=== PATIENT | male | born 1985 | race Caucasian/White ===

== ENCOUNTER 2017-01-11 05:52 | Day surgery (SDC) | payer OTHER ==
[~2017-01-11] VITALS: Ht 177.8 cm; Wt 90.7 kg
--- NOTE | ~2017-01-11 | O ---
[facility] [employer] [place] [address] OPERATIVE REPORT Name: ELTON GREENE Room #: DEP [facility]..#: [id number] Admission: 01/11/17 Attend Phys: Too Solorzano MD Discharge: 01/11/17 Date of : 85 Report #: [id number] THIS REPORT FOR: //name// CC: Too Cevallos DATE OF SERVICE: 01/11/2017 SERVICE: Orthopedics. FACILITY: [place]. PREOPERATIVE DIAGNOSES: 1. Left knee pain. 2. Left knee medial meniscus tear. POSTOPERATIVE DIAGNOSES: 1. Left knee pain. 2. Left knee medial meniscus tear, undersurface partial thickness, 8 mm in length. 3. Left knee medial plica. 4. Left knee medial femoral condyle chondromalacia. PROCEDURE: 1. Left knee arthroscopy with plica resection. 2. Left knee limited chondroplasty of the medial femoral condyle. 3. Left knee medial meniscus trephination. COMPLICATIONS: None. DRAINS: None. SPECIMENS: None. ESTIMATED BLOOD LOSS: Less than 5 mL. TOURNIQUET TIME: 28 minutes. FINDINGS: 1. Intact lateral compartment. 2. Intact ACL and PCL. 3. Normal patellofemoral space. 4. Medial compartment: Chondromalacia of the posterior midline portion of the medial femoral condyle and partial thickness about 30% and partial thickness chondromalacia of the distal lateral portion of the medial femoral condyle adjacent to the plica with wearing of the articular cartilage approximately 50%. [facility] [place] [employer] [place] [address] OPERATIVE REPORT Name: ELTON GREENE Room #: DEP [facility] M.R.#: [id number] Admission: 01/11/17 Attend Phys: Too Solorzano MD Discharge: 01/11/17 Date of : 85 Report #: [id number] No unstable flaps and a limited chondroplasty performed on the rim here. 5. Medial meniscus with an undersurface partial thickness tear that was stable to probing and measured 8 mm in length and it was felt that a debridement would be more detrimental as would. It was stable, so repair was not indicated, trephination was performed to generate optimal opportunity for healing. HISTORY AND INDICATIONS: The patient is a 31-year-old male with an injury to his left knee that resulted in persistent pain and dysfunction secondary to left knee pain. 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 He had to do repetitive turning and pivoting regularly and this was quite painful for him and was leading to episodes of giving way. The risks, benefits, alternatives and indications for surgery were discussed with him in detail, risks include but not limited to pain, bleeding, infection, injury to nerves or blood vessels, persistent pain despite surgical intervention, failure of any repairs or reconstructions, stiffness, need for further surgery including revision as well as complications related to anesthesia such as stroke, heart attack, pulmonary complications, thromboembolic disease and . Despite these risks, he wished to proceed. PROCEDURE IN DETAIL: After left lower extremity was correctly identified in preoperative holding area as the operative extremity, the patient was taken to the operating room and placed supine on operating table and general anesthesia with LMA was induced without complication. He was padded appropriately. Prophylactic antibiotics were administered. Tourniquet was applied to the left thigh, left leg was then prepped and draped in standard sterile fashion. Time-out procedure was performed. Esmarch was used to exsanguinate the leg and tourniquet inflated to 300 mmHg for 28 minutes. Standard anterolateral viewing portal as well as anterior medial working portal was established. Diagnostic arthroscopy revealed intact patellofemoral and lateral compartments with the stable lateral meniscus. ACL and PCL were normal as well. The medial compartment had chondromalacia in 2 areas on the medial femoral condyle, one was posterior and midline towards the PCL, the second area was distal and lateral and was directly adjacent to plica which was present extending from the medial synovium and all the way across to the infrapatellar region and this had to be removed with the meniscal biter because it was so thick. It was not responding to simple shaving and the biter was used to generate a free edge and then a shaver used to resect the rest of this on a dynamic arthroscopic examination prior to removal of the plica it could be seen to rub within the groove in the medial femoral condyle which was about 2 cm in length x 2 cm in width. It could also be seen to stretch across this chondral defect and [facility] [address] [place] [address] OPERATIVE REPORT Name: ELTON GREENE Room #: DEP [facility] MJalyn.#: [id number] Admission: 01/11/17 Attend Phys: Too Solorzano MD Discharge: 01/11/17 Date of : 85 Report #: [id number] fall into the defect as the knee was taken through range of motion, this would seem to give explanation for mechanical symptoms on the medial aspect of the knee with pivoting and flexion. It was therefore removed in total and then dynamic exam indicated that no further capture was occurring and the medial meniscus had a partial thickness undersurface tear on the tibial side that could be seen by probing and it measured about 8 mm in its maximum length and it was in the red-white zone, it was felt that trimming out this portion would cause significant amount of damage unnecessarily, it was not unstable to probing and so a repair was not appropriate. The posterior root was normal. At this point, an 18-gauge needle was introduced and trephination technique was used on the undersurface of the meniscus to generate a vascular ingrowth channel so that it would have optimal chance to heal. Scope was then placed back in the patellofemoral compartment. All debris was lavaged out of the knee. The arthroscopic effusion was drained, 18 gauge needle was placed under direct visualization. The portal sites were closed and then 10 mL of Duramorph were injected into the intraarticular space via that needle, sterile dressing was applied followed by compression stocking. There were no complications and all counts were recorded as correct. <ELECTRONICALLY SIGNED> By: Too Solorzano MD 01/12/17 0722 [id number] Too Solorzano MD /nt
[~2017-01-11 05:52] MED LIST: PAXIL10 MG PO; XANAX 0.25 MG0.25 MG PO
[2017-01-11 09:00] VITALS: BP 122/68
== END 2017-01-11 13:45 | disposition home or self-care (01) ==
LOC: OR 05:52 → TBA 05:52 → OR 10:44
DX: S83.242A Other tear of medial meniscus, current injury, left knee, initial encounter (principal); M67.52 Plica syndrome, left knee; M94.262 Chondromalacia, left knee; F32.89 Other specified depressive episodes; F41.8 Other specified anxiety disorders; Z98.890 Other specified postprocedural states; X58.XXXA Exposure to other specified factors, initial encounter; Y93.89 Activity, other specified; Y92.89 Other specified places as the place of occurrence of the external cause; Y99.8 Other external cause status
CPT/HCPCS: 50010; 50101; 50405; 50612; 51038; 51320; 52001; 52282; 54170; 56527; 62110; 62900; 70005

== ENCOUNTER 2021-01-25 11:16 | Day surgery (SDC) | payer OTHER ==
[~2021-01-25] VITALS: Ht 177.8 cm; Wt 96.6 kg
[~2021-01-25 11:16] MED LIST changes: +ADVIL200 M3 PO; +FLEXERIL PO; +HYDROXYZINE HCL25 M2 PO; +NEURONTIN 300M300 M2 PO; +TRAMADOL 50 MG50 MG PO; +TUMS200 MG PO
[2021-01-25 12:20] VITALS: BP 140/85
[2021-01-25 15:57] VITALS: BP 140/85
--- NOTE | 2021-01-27 06:35 | O ---
[address] [address] OPERATIVE REPORT Name: ELTON GREENE Room #: DEP [facility]..#: [id number] Admission: 01/25/21 Attend Phys: Too Solorzano MD Discharge: 01/25/21 Date of : 85 Report #: [id number] THIS REPORT FOR: cc: Cam Cevallos MD, Travis J. MD McCabe,Too Vela MD ~ DATE OF SERVICE: 01/25/2021 SERVICE: Orthopedics. FACILITY: [place]. SURGEON: Too Solorzano MD WATER POLLUTION CONTROL TECHNICIAN: Ayleen Penny NP INDICATIONS FOR WATER POLLUTION CONTROL TECHNICIAN: Extremity positioning, suture management, arthroscope management, assistance with repair. PREOPERATIVE DIAGNOSES: 1. Right hip pain. 2. Right hip femoral acetabular impingement. 3. Right hip labral tear. POSTOPERATIVE DIAGNOSES: 1. Right hip pain. 2. Right hip femoral acetabular impingement. 3. Right hip labral tear. PROCEDURES PERFORMED: 1. Right hip arthroscopic labral repair. 2. Right hip arthroscopic Cam osteochondroplasty. COMPLICATIONS: None. DRAINS: None. SPECIMENS: None. ANESTHESIA: General with regional. FINDINGS: 1. Intact articular cartilage. 2. Labral tear repair with [place] CinchLock suture anchor x2. 3. Small and medium-sized Cam deformity, maximal alpha angle approximately 56 degrees, treated with Cam osteoplasty. [address] [address] OPERATIVE REPORT Name: ELTON GREENE Room #: DEP [facility]#: [id number] Admission: 01/25/21 Attend Phys: Too Solorzano MD Discharge: 01/25/21 Date of : 85 Report #: [id number] 4. Capsular repair with #2 Vicryl x4. HISTORY: The patient is a 35-year-old gentleman with a history of persistent progressive right hip pain. He was initially seen in the Podiatry Clinic for conservative treatment including rest, activity modifications, physical therapy modalities, oral medication, and intra-articular injection. He has had some posterior pain and he had back involvement as well, but the intra-articular right hip injection did provide significant, but only temporary pain relief. He had x-rays that were consistent with femoral acetabular impingement with an alpha angle of approximately 56 degrees, [place] angle of 0 indicating no arthritis, and an MRI showing partial-thickness anterior labral tear. He has decreased internal rotation and giveway symptoms that were severe enough to be affecting activities of daily living including his work. Therefore, he is indicated for surgical treatment after risks, benefits, alternatives and indications for surgery were discussed with him in detail. Risks include, but not limited to, pain, bleeding, infection, injury to nerves or blood vessels, persistent pain despite surgical intervention, failure of any repairs, progression of preexisting chondral injury, stiffness, need for further surgery as well as complications related to anesthesia including . Despite the risks, he wished to proceed. DESCRIPTION OF PROCEDURE: After the right lower extremity was correctly identified as the operative extremity, he underwent regional nerve block. He was then taken to the operating room where general anesthesia was induced without complication. He was padded appropriately. Prophylactic antibiotics were administered in appropriate time. C-arm was used to identify the extent of the Cam deformity on the right hip femoral head and neck junction. The right hip was then prepped and draped in standard sterile fashion. Timeout procedure performed. Traction was applied. Standard anterolateral viewing portal was established followed by anteromedial working portal. Diagnostic arthroscopy revealed the above findings. There was an obvious tear at the chondral labral junction that extended onto the articular side of the acetabulum in a radial fashion for a width of approximately 4 mm. This represented some granulation tissue with some instability of the labral tissue itself. The femoral head was intact. There was erythema of the capsule as well as synovitis and this will be the indication for continuous passive motion machine used as postoperatively in order to reduce the risk of scarring and adhesions, as these could be reasons for reoperation in a patient population. The transverse capsulotomy was performed and then the initial debridement was completed. The capsule was reflected off the dorsal side of the labrum. The subspine region was carefully evaluated. There was no incidence of subspine impingement here. The bur was used to abrade the acetabular rim to create a fresh bleeding surface for labral repair. First of two [place] CinchLock suture anchors was then deployed with a cerclage suture providing good anatomic sabianist of the labrum against the acetabular rim. The second was placed more laterally. Labrum and cartilage were [address] [address] OPERATIVE REPORT Name: ELTON GREENE Room #: DEP [facility] Macario#: [id number] Admission: 01/25/21 Attend Phys: Too Solorzano MD Discharge: 01/25/21 Date of : 85 Report #: [id number] probed at this point and found to be stable and the scope was then moved to the anteromedial portal. Working portal was made laterally. We again assessed stability of the repair. I was happy with the repair in terms of appearance and stability on probing and so we turned our attention towards the peripheral compartment. Traction was let down, hip was flexed up. Transverse capsulotomy was extended slightly down the neck in a T fashion to allow access to the entire Cam deformity. He had a short neck in general and this allowed for tapering of the Cam osteoplasty distally in appropriate fashion. The bur was used to perform a Cam osteoplasty and then the instruments were removed. C-arm was brought in and the resection was assessed. I was happy with the appearance of the Cam osteoplasty at this point, so the instruments were placed back into the hip. The bony debris was lavaged out of the hip and then the instruments were removed. Portal sites were closed. Sterile dressing was applied. The patient was awakened from anesthesia and taken to recovery room in stable condition. There were no complications. All counts were reported as correct. <ELECTRONICALLY SIGNED> By: Too Solorzano MD 01/27/21 0635 0626 [id number] Too Solorzano MD /nt
== END 2021-01-25 15:57 | disposition home or self-care (01) ==
LOC: OR 11:16 → TBA 11:16 → OR 12:30
PROVIDERS: ATTEND Orthopaedic Surgery Sports Medicine
DX: M25.551 Pain in right hip (principal); M25.851 Other specified joint disorders, right hip; S73.191A Other sprain of right hip, initial encounter; F41.9 Anxiety disorder, unspecified; K21.9 Gastro-esophageal reflux disease without esophagitis; Z20.822 Contact with and (suspected) exposure to COVID-19; Z98.890 Other specified postprocedural states; Z79.899 Other long term (current) drug therapy; Z87.891 Personal history of nicotine dependence; X58.XXXA Exposure to other specified factors, initial encounter; Y93.89 Activity, other specified; Y92.89 Other specified places as the place of occurrence of the external cause; Y99.8 Other external cause status
CPT/HCPCS: 50010; 50101; 50386; 51320; 51538; 52304; 52313; 56524; 56527; 57092; 57103; 58273; 58274; 58557; 58558; 58559; 58560; 58561; 58562; 58563; 58564; 58608; 62110; 62900; 64039; 70005

== ENCOUNTER → 2021-05-31 | Day surgery (SDC) | payer OTHER ==
[~2021-05-31] VITALS: Ht 177.8 cm; Wt 92.5 kg
[~2021-05-31] MED LIST changes: +ALEVE220 M1 PO
[2021-05-31 08:20] VITALS: BP 122/73
[2021-05-31 11:39] VITALS: BP 122/73
--- NOTE | 2021-06-07 22:34 | O ---
[facility] [address] [place] [address] OPERATIVE REPORT Name: ELTON GREENE Room #: REG [facility]..#: [id number] Admission: 05/31/21 Attend Phys: Too Solorzano MD Discharge: Date of : 85 Report #: [id number] THIS REPORT FOR: cc: Cam Cevallos MD, Travis J. MD McCabe,Too Vela MD ~ DATE OF SERVICE: 05/31/2021 SERVICE: Orthopedics. FACILITY: [place]. SURGEON: Too Solorzano MD CONSTRUCTION IRONWORKER: Ayleen Penny NP PREOPERATIVE DIAGNOSES: 1. Left knee pain. 2. Left knee medial meniscus tear. 3. Status post previous left knee medial meniscus repair in 2017. 4. Previous left knee medial femoral condyle chondromalacia. POSTOPERATIVE DIAGNOSES: 1. Left knee pain. 2. Left knee medial meniscus tear. 3. Status post previous left knee medial meniscus repair in 2017. 4. Previous left knee medial femoral condyle chondromalacia. PROCEDURES: 1. Left knee arthroscopic partial medial meniscectomy. 2. Removal of deep orthopedic implant, left knee. COMPLICATIONS: None. DRAINS: None. SPECIMENS: None. ANESTHESIA: General with regional. FINDINGS: 1. Unstable posterior horn medial meniscus flap tear with both vertical and horizontal components and degenerative meniscal tissue. 2. Three sutures from the previous medial meniscus repair, which had torn free, which was resected. 3. Intact articular cartilage in the patellofemoral and lateral compartment and [address] [address] OPERATIVE REPORT Name: ELTON GREENE Room #: REG [facility] M.R.#: [id number] Admission: 05/31/21 Attend Phys: Too Solorzano MD Discharge: Date of : 85 Report #: [id number] lateral meniscus as well as cruciates were intact. 4. No additional medial meniscal lesion. HISTORY: The patient is a 36-year-old gentleman who sustained an injury to his left knee when he was pushing a heavy cart and he was pivoting. He had acute onset of medial-sided knee pain similar to what he had previously, but actually more intense when he had a prior medial meniscus tear. He was indicated for surgical treatment after MRI showed an unstable flap tear of the medial meniscus. Plans were made for debridement versus repair with consideration of repair if at all possible based on the tissue quality. Risks, benefits, alternatives and indications for surgery discussed with him in detail. Despite the risks, he wished to proceed. PROCEDURE IN DETAIL: After the left lower extremity was correctly identified in the preoperative holding area as the operative extremity, the patient was taken to the operating room where general anesthesia was induced without complications. He was padded appropriately. Prophylactic antibiotics were administered at appropriate time. A tourniquet was applied to the left leg. The left lower extremity was prepped and draped in a standard sterile fashion. Timeout procedure was performed. Esmarch was used and the tourniquet inflated to 250 mmHg. A standard anterolateral viewing portal was established followed by anteromedial working portal. Diagnostic arthroscopy revealed the above findings. The patellofemoral joint was intact. There were some adhesions in the suprapatellar pouch, which were resected, and this was where one of the previous sutures were identified. This was resected with a shaver and removed. The medial compartment was then carefully evaluated and the medial meniscus was visualized. There was an unstable flap tear with deterioration and degeneration of the tissue itself. This was an irreparable tear and so I used a biter and a shaver to debride the meniscus tear back to a stable perimeter, removing the inner rim of the posterior horn of the medial meniscus to the junction of the body and posterior horn. There was some peripheral meniscal tissue intact. There was some adjacent chondromalacia and a limited chondroplasty was performed with a shaver anteriorly. The tissues were intact. The cruciates were intact. The leg was placed in a [id number]. The lateral compartment was intact. The arthroscopic effusion was drained. Instruments were removed. Portal sites were closed. Sterile dressing was applied. The patient was awakened from anesthesia and taken to recovery room in a stable condition. There were no complications. All counts were correct. <ELECTRONICALLY SIGNED> By: Too Solorzano MD 06/07/21 2234 [id number] Too Solorzano MD /nt
== END | disposition home or self-care (01) ==
LOC: OR 06:54
PROVIDERS: ATTEND Orthopaedic Surgery Sports Medicine
DX: M25.562 Pain in left knee (principal); S83.242A Other tear of medial meniscus, current injury, left knee, initial encounter; M94.262 Chondromalacia, left knee; K21.9 Gastro-esophageal reflux disease without esophagitis; F41.9 Anxiety disorder, unspecified; Z20.822 Contact with and (suspected) exposure to COVID-19; Z98.890 Other specified postprocedural states; Z79.899 Other long term (current) drug therapy; Z87.891 Personal history of nicotine dependence; X58.XXXA Exposure to other specified factors, initial encounter; Y93.89 Activity, other specified; Y92.89 Other specified places as the place of occurrence of the external cause; Y99.8 Other external cause status
CPT/HCPCS: 50010; 50101; 50405; 52313; 56527; 57103; 57180; 58589; 58680; 62110; 62900; 70005